=== PATIENT | female | born 1995 | race African-American/Black ===

== ENCOUNTER 2019-06-14 17:20 | Emergency (ER) | payer OTHER, MEDICAID ==
[~2019-06-14] VITALS: Ht 160 cm; Wt 74.8 kg
[2019-06-14 17:25] VITALS: BP 148/81
[2019-06-14] MEDS ORDERED: PREDNISONE 20 M20 MG PO (17:47)
[2019-06-14] MEDS ORDERED: TRIAMCINOLONE A80 G2 TOP (17:47)
[2019-06-14] MEDS ORDERED: CLARITIN10 MG PO (17:48)
== END 2019-06-14 17:54 | disposition home or self-care (01) ==
LOC: M.ERS 17:20
DX: L29.9 Pruritus, unspecified (principal); T78.40XA Allergy, unspecified, initial encounter; X58.XXXA Exposure to other specified factors, initial encounter

== ENCOUNTER 2019-07-16 11:40 | Emergency (ER) | payer OTHER, MEDICAID ==
[~2019-07-16] VITALS: Ht 160 cm; Wt 77.1 kg
[~2019-07-16 11:40] MED LIST: CLARITIN10 MG PO; PREDNISONE 20 M20 MG PO; TRIAMCINOLONE A80 G2 TOP
[2019-07-16 11:58] LABS: URINE BILIRUBIN NEGATIVE (Negative); URINE BLOOD NEGATIVE (Negative); URINE CLARITY CLEAR; URINE COLOR YELLOW; URINE GLUCOSE-RANDOM NEGATIVE (Negative); URINE KETONES NEGATIVE (Negative); URINE LEUKOCYTES-REFLEX NEGATIVE (Negative); URINE NITRITE-REFLEX NEGATIVE (Negative); URINE PROTEIN NEGATIVE (Negative); URINE SPECIFIC GRAVITY 1.015 (1.005-1.030); URINE UROBILINOGEN 0.2 E.U./dl (0.2-1.0)
[2019-07-16] MEDS ORDERED: NOHOMEMEDICATIONS (12:00)
[2019-07-16 12:49] LABS: ABSOLUTE EOSINOPHILS 0.1 thou/uL (0.0-0.7); ABSOLUTE LYMPHOCYTES 2.4 thou/uL (0.8-5.3); ABSOLUTE MONOCYTES 0.5 thou/uL (0.0-1.2); ABSOLUTE NEUTROPHILS 3.4 thou/uL (1.6-8.1); BASOPHILS 0.1 %; EOSINOPHILS 0.9 %; HEMATOCRIT 34.7 % (37.0-47.0); HEMOGLOBIN 11.9 gm/dL (12.0-15.0); LYMPHOCYTES 37.3 %; MCH 30.6 pg (26.0-34.0); MCHC 34.2 g/dL (28.0-37.0); MCV 89.5 fL (80.0-100.0); MPV 9.5 fl. (7.2-11.1); NUCLEATED RBCS 0 /100WBC; PLATELET COUNT* 234 thou/uL (150-400); POLYS 53.7 %; RBC 3.88 mil/uL (4.20-5.00); RDW-CV 13.5 % (10.5-14.5); WBC 6.3 thou/uL (4.0-11.0)
[2019-07-16 13:05] LABS: CALCIUM 8.9 mg/dL (8.5-10.1); CREATININE 0.7 mg/dL (0.6-1.3); POTASSIUM 3.7 mmol/L (3.5-5.1)
[2019-07-16 13:10] LABS: ALBUMIN 3.5 g/dL (3.4-5.0); TOTAL BILIRUBIN 0.2 mg/dL (<0.1-1.0); TOTAL PROTEIN 7.1 g/dL (6.4-8.2)
[2019-07-16 15:12] VITALS: BP 111/75
== END 2019-07-16 15:10 | disposition left against medical advice (07) ==
LOC: M.ERS 11:40
PROVIDERS: Nurse Practitioner Family
DX: O26.891 Other specified pregnancy related conditions, first trimester (principal); R10.2 Pelvic and perineal pain; Z87.59 Personal history of other complications of pregnancy, childbirth and the puerperium; Z91.018 Allergy to other foods; Z3A.01 Less than 8 weeks gestation of pregnancy